=== PATIENT | female | born 1945 ===

== ENCOUNTER 2023-11-23 06:00 | Outpatient (RCR) | payer MEDICARE, SELFPAY | END 2023-11-27 23:59 | disposition home or self-care (01) | LOC: TPT 06:00 | PROVIDERS: Visit Provider Orthopaedic Surgery | DX: Z47.1 Aftercare following joint replacement surgery (principal); Z96.652 Presence of left artificial knee joint | CPT/HCPCS: 97162 ==

== ENCOUNTER 2023-11-28 06:00 | Outpatient (RCR) | payer MEDICARE, SELFPAY | END 2023-12-28 23:59 | disposition home or self-care (01) | LOC: TPT 06:00 | PROVIDERS: Visit Provider Orthopaedic Surgery | DX: Z47.1 Aftercare following joint replacement surgery (principal); Z96.652 Presence of left artificial knee joint | CPT/HCPCS: 97110 ==

== ENCOUNTER 2023-12-29 06:00 | Outpatient (RCR) | payer MEDICARE, SELFPAY | END 2024-01-26 23:59 | disposition home or self-care (01) | LOC: TPT 06:00 | PROVIDERS: Visit Provider Orthopaedic Surgery | DX: Z47.89 Encounter for other orthopedic aftercare (principal); Z96.652 Presence of left artificial knee joint | CPT/HCPCS: 97110 ==

== ENCOUNTER 2024-01-27 06:00 | Outpatient (RCR) | payer MEDICARE, SELFPAY | END 2024-02-26 23:59 | disposition home or self-care (01) | LOC: TPT 06:00 | PROVIDERS: Visit Provider Orthopaedic Surgery | DX: Z47.1 Aftercare following joint replacement surgery (principal); Z96.652 Presence of left artificial knee joint | CPT/HCPCS: 97110 ==

== ENCOUNTER 2024-02-27 06:00 | Outpatient (RCR) | payer MEDICARE, SELFPAY | END 2024-03-02 23:59 | disposition home or self-care (01) | LOC: TPT 06:00 | PROVIDERS: Visit Provider Orthopaedic Surgery | DX: Z47.1 Aftercare following joint replacement surgery (principal); Z96.652 Presence of left artificial knee joint | CPT/HCPCS: 97110 ==